=== PATIENT | female | born 1990 | race Caucasian/White ===

== ENCOUNTER → 2020-11-12 | Outpatient (REF) | payer OTHER | LOC: M LAB REF 20:12 | PROVIDERS: ATTEND Physician Assistant | DX: J02.9 Acute pharyngitis, unspecified (principal) ==

== ENCOUNTER → 2021-04-04 | Outpatient (REF) | payer OTHER ==
[~2021-04-04] MED LIST: ACET-907 PO; CALC500C15 PO; IBUP80TA PO; PRENTAB9 PO
== END ==
LOC: M WUC 22:54
PROVIDERS: ATTEND Physician Assistant
DX: J06.9 Acute upper respiratory infection, unspecified (principal)

== ENCOUNTER 2021-05-12 14:17 | Inpatient (IN) | payer OTHER ==
[~2021-05-12] VITALS: Ht 149.9 cm; Wt 59.7 kg
[2021-05-12] VITALS (16 sets, daily range): BP systolic 123–174; BP diastolic 73–101
[2021-05-12] MEDS ORDERED: LACTATED RINGER'S 1000 ML IV STA (15:04)
[2021-05-12] MEDS ORDERED: LR 1,000 ML IV SCH ×2 (15:05→20:25)
[2021-05-12] MEDS ORDERED: OXYTOCIN DRIP 30 UNITS in IV 1 EA IV PRN (15:05)
[2021-05-12] MEDS ORDERED: LIDOCAINE 1% MDV 20ML VIAL INFIL PRN (15:05)
[2021-05-12] MEDS ORDERED: CALC500C15 PO (15:19)
[2021-05-12] MEDS ORDERED: PRENTAB9 PO (15:19)
[2021-05-12] MEDS ORDERED: ACET-907 PO (15:19)
[2021-05-12] MEDS ORDERED: HOME MED LIST COMPLETE! XX SCH (15:20)
[2021-05-12 16:39] LABS: HEMATOCRIT 34.7 % (36.0-47.0); HEMOGLOBIN 11.3 g/dl (12.0-15.5); MEAN CORPUSCULAR HEMOGLOBIN 25.9 pg (27.0-33.0); MEAN CORPUSCULAR HGB CONC 32.6 g/dl (32.0-36.5); MEAN CORPUSCULAR VOLUME 79.6 fl (80.0-96.0); PLATELET COUNT, AUTOMATED 249 10^3/uL (150-450); RED BLOOD COUNT 4.36 10^6/uL (4.00-5.40); WHITE BLOOD COUNT 10.7 10^3/uL (4.0-10.0)
[2021-05-12] MEDS: ACETAMINOPHEN 500 MG TAB PO SCH ×2 (18:00→23:39)
[2021-05-12] MEDS ORDERED: FENTANYL 2MCG/ML ROPIVACAINE 0.2% IN 0.9% NACL 100ML IVBAG As Ordered ONE (18:05)
[2021-05-12] MEDS ORDERED: ONDANSETRON 4MG/2ML VIAL IV PRN ×2 (18:20→20:25)
[2021-05-12] MEDS ORDERED: ePHEDrine SULFATE 25 MG/5 ML(5MG/ML) SYRINGE IV PRN (18:20)
[2021-05-12] MEDS ORDERED: EPIDURAL COMMENT XX SCH (18:20)
[2021-05-12] MEDS ORDERED: REFRIGERATOR IV KEYS XX PRN (18:20)
[2021-05-12] MEDS ORDERED: NALOXONE INJ 0.4MG/1ML VIAL (J2310 PER 1MG) IV PRN (18:20)
[2021-05-12] MEDS ORDERED: diphenhydrAMINE 50MG/ML VIAL (J1200) IV PRN (18:20)
[2021-05-12] MEDS ORDERED: LACTATED RINGER'S 1000 ML IV PRN (18:20)
[2021-05-12] MEDS ORDERED: FENTANYL/ROPIVACAINE/NACL BAG 100 ML EPIDURAL SCH (18:20)
[2021-05-12] MEDS ORDERED: EPIDURAL/PCA KEYS XX PRN (18:20)
[2021-05-12 20:07] LABS: CORD GAS ABE V -11.3; CORD GAS PH V 7.177 UNITS; CORD GAS PO2 V 31.9 mmHg; CORD GAS SBC V 15.1 MEQ/L; CORD GAS TCO2 V 18.5 MEQ/L
[2021-05-12 20:08] LABS: CORD GAS HCO3 A 18.9 MEQ/L; CORD GAS O2 SAT A 66.7 %; CORD GAS PCO2 A 43.4 mmHg; CORD GAS PH A 7.256 UNITS; CORD GAS SBC A 17.4 MEQ/L; CORD GAS TCO2 A 20.2 MEQ/L
[2021-05-12] MEDS ORDERED: OXYTOCIN 30 UNITS IN 0.9% NaCl 500ML IV BAG (J2590) As Ordered ONE (20:24)
[2021-05-12] MEDS ORDERED: OXYTOCIN DRIP 30 UNITS in IV 1 EA IV SCH ×4 (20:25)
[2021-05-12] MEDS ORDERED: DOCUSATE SODIUM 100MG CAPSULE PO PRN (20:25)
[2021-05-12] MEDS ORDERED: MEASLES,MUMPS,RUBELLA VACCINE INJ (MMR-II) (90707) SC SCH (20:25)
[2021-05-12] MEDS ORDERED: RHOGAM 300 MCG (1500 IU) INJ (J2790) IM SCH (20:25)
[2021-05-12] MEDS ORDERED: PROMETHAZINE 25 MG TAB PO PRN (20:25)
[2021-05-12] MEDS ORDERED: DIBUCAINE 1% OINTMENT 30GM TOP PRN (20:25)
[2021-05-12] MEDS: IBUPROFEN 800 MG TAB PO SCH (22:07)
[2021-05-13 06:00] VITALS: BP 120/79
[2021-05-13] MEDS: IBUPROFEN 800 MG TAB PO SCH ×3 (06:20→22:17)
[2021-05-13] MEDS: ACETAMINOPHEN 500 MG TAB PO SCH ×3 (06:21→18:15)
[2021-05-13] MEDS ORDERED: PRENATAL VITAMINS CHEWABLE TABLET PO SCH (09:00)
[2021-05-13 09:29] LABS: HEMATOCRIT 30.8 % (36.0-47.0); HEMOGLOBIN 10.1 g/dl (12.0-15.5); MEAN CORPUSCULAR HEMOGLOBIN 25.9 pg (27.0-33.0); MEAN CORPUSCULAR HGB CONC 32.8 g/dl (32.0-36.5); PLATELET COUNT, AUTOMATED 219 10^3/uL (150-450); WHITE BLOOD COUNT 10.5 10^3/uL (4.0-10.0)
[2021-05-13] MEDS: PRENATAL VITAMINS CHEWABLE TABLET PO SCH (09:53)
[2021-05-13 15:00] VITALS: BP 130/81
[2021-05-13 18:08] VITALS: BP 119/77
[2021-05-14] MEDS: ACETAMINOPHEN 500 MG TAB PO SCH ×2 (00:12→06:07)
[2021-05-14 05:55] VITALS: BP 121/88
[2021-05-14] MEDS: IBUPROFEN 800 MG TAB PO SCH (06:06)
[2021-05-14] MEDS ORDERED: IBUP80TA PO (07:06)
[2021-05-14] MEDS: PRENATAL VITAMINS CHEWABLE TABLET PO SCH (08:47)
== END 2021-05-14 12:30 | disposition home or self-care (01) | DRG 807 ==
LOC: M LDO 14:17 → M LDI 15:24 → M OBS 05-13 06:45
PROVIDERS: ADMIT Registered Nurse; ATTEND Registered Nurse
PROC: 10E0XZZ Delivery of Products of Conception, External Approach (ICD-10-PCS; principal; 2021-05-12)
DX: O70.1 Second degree perineal laceration during delivery (principal); Z37.0 Single live birth; Z3A.39 39 weeks gestation of pregnancy